=== PATIENT | female | born 1975 | race Caucasian/White ===

== ENCOUNTER 2016-10-16 01:45 | Emergency (ER) | payer SELFPAY ==
[~2016-10-16] VITALS: Ht 154.9 cm; Wt 49.0 kg
[2016-10-16] MEDS ORDERED: IBUP-1007 PO (02:37)
[2016-10-16] MEDS ORDERED: HYDR-2678 PO (02:37)
--- NOTE | 2016-10-16 02:37 | PHYS DOC ---
Past Medical History Past Medical History: Other Additional Past Medical Histor: endometriosis Past Surgical History: , Hysterectomy, Oophorectomy, Tonsillectomy, Other Additional Past Surgical Histo: rinoplasty Alcohol Use: Rarely Drug Use: None Adult General Chief Complaint Chief Complaint: SHOULDER INJURY HPI HPI Patient is a 40 year old female who presents here today complaining of left shoulder pain. Patient reports that she was staying at her house at [facility] and was doing a lot of yard work. Patient got home today and tried to sleep and woke up in severe pain in her left shoulder. Patient denies any acute trauma however she does have a lot of discomfort. Patient denies any chest pain or shortness of breath. Patient has no nausea nausea vomiting. Patient denies any diaphoresis. Patient reports severe pain with palpation and with movement of her left arm. Patient denies any increased pain with exertion or walking to the bathroom. Patient reports pain when sleeping on her left side. Patient denies any history of hypertension diabetes liver longer kidney problems. Patient denies any cardiac history in the past. Patient has any recent fevers shakes chills nausea vomiting diarrhea chest pain shortness of breath. Patient's physical exam was significant for tenderness to palpation to her left shoulder. Patient has tenderness to palpation with any range of motion to her left shoulder. Patient has no step-off or deformity noted. Patient has no soft tissue swelling edema or palpable fluid. There is no erythema. Neurovascular intact. Review of Systems Review of Systems Constitutional: Denies fever or chills [] Eyes: Denies change in visual acuity, redness, or eye pain [] All other review systems are negative except as documented in the history of present illness. Current Medications Current Medications Current Medications Medications (Trade) Dose Ordered Sig/[facility] Start Time Stop Time Status Last Admin Dose Admin Acetaminophen/ Hydrocodone Bitart (Lortab 5/325) 1 tab 1X ONCE 10/16/16 02:45 10/16/16 02:46 DC 10/16/16 02:46 1 TAB Ketorolac Tromethamine (Toradol) 15 mg 1X ONCE 10/16/16 02:45 10/16/16 02:46 DC 10/16/16 02:47 15 MG Allergies Allergies Allergies Coded Allergies Type Severity Reaction Last Updated Verified albuterol Allergy Unknown 10/16/16 Yes terbutaline Allergy Unknown 10/16/16 Yes Physical Exam Physical Exam Constitutional: Well developed, well nourished, no acute distress, non-toxic appearance. [] HENT: Normocephalic, atraumatic, bilateral external ears normal, oropharynx moist, no oral exudates, nose normal. [] Eyes: PERRLA, EOMI, conjunctiva normal, no discharge. [] Neck: Normal range of motion, no tenderness, supple, no stridor. [] Cardiovascular:Heart rate regular rhythm, no murmur [] Lungs & Thorax: Bilateral breath sounds clear to auscultation [] Abdomen: Bowel sounds normal, soft, no tenderness, no masses, no pulsatile masses. [] Skin: Warm, dry, no erythema, no rash. [] Back: No tenderness, no CVA tenderness. [] Neurologic: Alert and oriented X 3, normal motor function, normal sensory function, no focal deficits noted. [] Psychologic: Affect normal, judgement normal, mood normal. [] Current Patient Data Vital Signs Vital Signs Date Time Temp Pulse Resp B/P Pulse Ox O2 Delivery O2 Flow Rate FiO2 10/16/16 02:47 77 128/83 97 Room Air 10/16/16 02:46 16 10/16/16 01:58 98.4 98.4 EKG EKG [] Radiology/Procedures Radiology/Procedures [] Impressions: Patient had an x-ray of her left shoulder which revealed no deformity or fracture. Patient's exam is consistent with a left shoulder strain. Patient was given ibuprofen and [place] to go home with. Patient was given a left arm sling and instructed to rest at ice elevation. Patient is given a shot of Toradol here in the ER as well patient's clinically and hemodynamically stable for discharge to home. Course & Med Decision Making Course & Med Decision Making Pertinent Labs and Imaging studies reviewed. (See chart for details) [] Dragon Disclaimer Dragon Disclaimer This electronic medical record was generated, in whole or in part, using a voice recognition dictation system. Departure Departure Impression: Primary Impression: Left shoulder strain Disposition: 01 HOME, SELF-CARE Condition: IMPROVED Referrals: NO PCP (PCP) Patient Instructions: Arm Sling Use, [id number], Shoulder Pain Scripts Hydrocodone/Acetaminophen (Lortab 5-325 mg Tablet)1 Each Tablet1 Tab PO PRN Q6HRS PRN PAIN #14 TAB Prov:KORIN LOU MD 10/16/16 Ibuprofen 600 Mg [id number] Mg PO PRN Q6HRS PRN PAIN #20 TAB Prov:KORIN LOU MD 10/16/16 KORIN LOU MD Oct 16, 2016 02:37
[2016-10-16] MEDS ORDERED: HYDROCODONE/APAP 5/325MG TABLET. PO ONE (02:45)
[2016-10-16] MEDS ORDERED: KETOROLAC 15 MG/ML VIAL. IM ONE (02:45)
[2016-10-16 02:47] VITALS: BP 128/83
--- NOTE | 2016-10-16 07:13 | RAD ---
Left shoulder, 3 views, 10/16/2016: History: Shoulder pain No fracture or dislocation is identified. No significant arthritic change is seen. IMPRESSION: No acute left shoulder abnormality is detected.
== END 2016-10-16 02:56 | disposition home or self-care (01) ==
LOC: ER 01:45
DX: S46.912A Strain of unspecified muscle, fascia and tendon at shoulder and upper arm level, left arm, initial encounter (principal); Z88.8 Allergy status to other drugs, medicaments and biological substances; X58.XXXA Exposure to other specified factors, initial encounter; Y93.89 Activity, other specified; Y99.8 Other external cause status; Y92.89 Other specified places as the place of occurrence of the external cause
CPT/HCPCS: 73030; 96372; 99284; J1885